=== PATIENT | female | born 1965 | race Caucasian/White ===

== ENCOUNTER 2016-09-08 16:05 | Emergency (ER) | payer OTHER ==
[2016-09-08 16:12] VITALS: BP 136/106
[2016-09-08] MEDS ORDERED: NUBAIN IM ONE (16:31)
[2016-09-08] MEDS ORDERED: PHENERGAN IM ONE (16:31)
--- NOTE | 2016-09-08 16:34 | PROVIDER DOCUMENTATION ---
HPI-Headache - General Chief Complaint: Headache Stated Complaint: FLU LIKE SX/MIGRAINE Time Seen by Provider: 09/08/16 16:25 Source: patient Allergies/Adverse Reactions: Patient Allergies Allergy/AdvReac Type Severity Reaction Status Date / Time acetaminophen Allergy RASH Verified 03/29/12 13:07 [From Darvocet-N 100] chlorpromazine HCl * Allergy RASH Verified 03/29/12 13:08 [From Thorazine] prochlorperazine edisylate * Allergy ANAPHYLAXIS Verified 03/29/12 13:08 [From Compazine] prochlorperazine maleate * Allergy ANAPHYLAXIS Verified 03/29/12 13:08 [From Compazine] propoxyphene napsylate * Allergy RASH Verified 03/29/12 13:07 [From Darvocet-N 100] Home Medications: Home Medication List Medication Instructions Recorded Confirmed Last Taken Type Esomeprazole [Nexium] 40 mg PO BID 03/29/12 03/29/12 03/29/12 08:00 History Estrogen,Daija/Me-Testosterone 1 each PO QHS 03/29/12 03/29/12 03/28/12 21:00 History [Estratest H.s. Tablet] Hydrocodone/Acetaminophen [Lortab 1 each PO 4XDAY 03/29/12 03/29/12 03/29/12 11: 00 History 10-500 Tablet] Fluconazole [Diflucan] 150 mg PO DAILY #2 tablet 09/08/16 Unknown Rx - History of Present Illness-Headache Nature of Presenting Problem: 50 y/o WF c hx of migraines, c/o migraine LANDRY that is typical of hers. Photophobia and nausea. States it came on because she's been coughing from a sinus infection she is being treated for with Augmenting. States the Augmentin giving her diarrhea. Denies worst headache of life. Review of Systems - Adult - REVIEW OF SYSTEMS - ADULT Constitutional: reports: no symptoms reported. denies: chills, fever, fatique Eyes: reports: no symptoms reported. denies: blurred vision, double vision, eye pain Ears, Nose, Mouth & Throat: reports: no symptoms reported. denies: ear pain, nose pain, throat pain Cardiovascular: reports: no symptoms reported. denies: chest pain, palpitations Respiratory: reports: no symptoms reported. denies: cough, shortness of breath , wheezing Gastrointestinal: reports: see HPI, diarrhea, nausea. denies: abdominal pain, difficulty swallowing, vomiting Genitourinary: reports: no symptoms reported Musculoskeletal: reports: no symptoms reported. denies: bone pain, back pain, muscle aches Integumentary: reports: no symptoms reported. denies: rash Neurological: reports: headache/migraines. denies: ataxia, dizziness/vertigo, loss of balance, paresthesia, slurred speech Psychiatric: reports: no symptoms reported Endocrine: reports: no symptoms reported Hematologic/Lymphatic: reports: no symptoms reported Allergic/Immunologic: reports: no symptoms reported All Other Systems: Reviewed and Negative Past History - Adult - PAST MEDICAL HISTORY-ADULT Review of Records: reports: Old Records Reviewed, Nursing Assessment Review, Medications Reviewed Major Childhood Illnesses: reports: denies history Cardiovascular: reports: denies history Respiratory: reports: denies history Gastrointestinal: reports: GERD Obstetrical/Gynecological: reports: denies history Genitourinary: reports: denies history Musculoskeletal: reports: arthritis, chronic pain, neck/back injury Neurological: reports: headaches/migraines Endocrine/Immune: reports: denies history Other Conditions: reports: skin disorder (melanoma) - PRIOR SURGERIES/PROCEDURES Surgical/Procedure History: reports: none - IMMUNIZATION STATUS Childhood Immunizations: See Nurse Assessment Flu Vaccine: See Nurse Assessment - FAMILY HISTORY Family History: reviewed, not pertinent Physical Exam- Neurological - Physical Exam-Neuro Initial Vital Signs Reviewed: Yes General Appearance: appears well, alert, no apparent distress Eye Exam: bilateral eye: normal inspection, PERRL, EOMI HENMT: normocephalic/atraumatic, moist mucous membranes Head Injury: no evidence of injury Neck: non-tender, full range of motion, supple, normal inspection. negative: lymphadenopathy Respiratory: chest non-tender, lungs clear, normal breath sounds, no pleuratic chest pain, no respiratory distress, no accessory muscle use. 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 Exam: normal hearing, normal speech, PERRL Motor/Sensory: no motor deficit, no sensory deficit Neurologic: grossly normal, no motor/sensory deficits Integumentary: normal color, normal turgor, warm/dry Psych/Mental Status: normal mood/affect, normal thought content, normal thought process, oriented x 3 - Glascow Coma Scale Best Eye Response: (4) open spontaneously Best Verbal Response: (5) oriented Best Motor Response: (6) obeys commands Progress - PLAN OF CARE/RESULTS Progress/Plan/Lab Results: Vital Signs Temp Pulse Resp BP Pulse Ox 09/08/16 16:09 98.4 F 100 H 20 136/106 100 acetaminophen [From Darvocet-N 100] Allergy (Verified 03/29/12 13:07) RASH chlorpromazine HCl * [From Thorazine] Allergy (Verified 03/29/12 13:08) RASH prochlorperazine edisylate * [From Compazine] Allergy (Verified 03/29/12 13:08) ANAPHYLAXIS prochlorperazine maleate * [From Compazine] Allergy (Verified 03/29/12 13:08) ANAPHYLAXIS propoxyphene napsylate * [From Darvocet-N 100] Allergy (Verified 03/29/12 13:07) RASH Esomeprazole [Nexium] 40 mg PO BID 03/29/12 Estrogen,Daija/Me-Testosterone [Estratest H.s. Tablet] 1 each PO QHS 03/29/12 Hydrocodone/Acetaminophen [Lortab 10-500 Tablet] 1 each PO 4XDAY 03/29/12 Fluconazole [Diflucan] 150 mg PO DAILY #2 tablet 09/08/16 Orders Category Date Time Status INFLUENZA SCREEN A/B Stat Lab 09/08/16 16:16 Completed Nalbuphine [Nubain] Med 09/08/16 16:31 Discontinued 10 mg IM NOW ONE Promethazine [Phenergan] Med 09/08/16 16:31 Discontinued 25 mg IM NOW ONE Departure - Departure Time of Disposition Order: 16:33 DIAGNOSIS: Yeast infection Migraine Qualifiers: Migraine type: without aura Status migrainosus presence: without status migrainosus Intractability: not intractable Qualified Code(s): G43.009 - Migraine without aura, not intractable, without status migrainosus Disposition: HOME 01 Certified Medical Emergency: Emergent Condition: Stable Additional Instructions: ED Follow Up Instructions: You have been treated by a care provider in the Emergency Department. These instructions are being provided to you so you can have an understanding of how to care for yourself upon discharge. Upon discharge from the Emergency Department, you are responsible for making arrangements for follow-up care by a physician of your choice. Take all prescribed medications as directed. Return to the Emergency Department immediately for any new or worsening symptoms. You may call the Physician Referral phone number at [phone] to obtain a list of Physicians who are taking new patients. Prescriptions: Fluconazole [Diflucan] 150 mg PO DAILY #2 tablet Attestation - Physician/ ADI Attestation Patient care was provided by Advanced Practice Provider:: Yes Advanced Practice Provider:: Ivett Cope Advanced Practice Provider documentation review:: The Mid-level provider documentation, treatment plan and medical decision making was reviewed by the physician who agrees with all treatment and medical decision making by the MLP.
== END 2016-09-08 17:31 | disposition home or self-care (01) ==
LOC: ED 16:05
DX: G43.009 Migraine without aura, not intractable, without status migrainosus (principal); B37.9 Candidiasis, unspecified; R51 Headache; H53.149 Visual discomfort, unspecified; R11.0 Nausea; R05 Cough; R19.7 Diarrhea, unspecified; K21.9 Gastro-esophageal reflux disease without esophagitis; Z79.899 Other long term (current) drug therapy; M19.90 Unspecified osteoarthritis, unspecified site; G89.29 Other chronic pain; Z85.820 Personal history of malignant melanoma of skin
CPT/HCPCS: 87804; J2300; J2550